=== PATIENT | female | born 1990 | race Caucasian/White ===

== ENCOUNTER → 2020-04-09 13:14 | Outpatient (BNVA) | payer OTHER, SELFPAY | PROVIDERS: Visit Provider Nurse Practitioner | DX: N39.0 Urinary tract infection, site not specified (principal); R39.9 Unspecified symptoms and signs involving the genitourinary system | CPT/HCPCS: 81000; 87086 ==

== ENCOUNTER → 2020-09-22 09:49 | Outpatient (BNVA) | payer OTHER, SELFPAY | PROVIDERS: Visit Provider Emergency Medicine | DX: Z20.828 Contact with and (suspected) exposure to other viral communicable diseases (principal) | CPT/HCPCS: 87635 ==

== ENCOUNTER → 2021-04-04 16:00 | Outpatient (BNVA) | payer OTHER, SELFPAY | PROVIDERS: Visit Provider Nurse Practitioner Women's Health | DX: Z01.419 Encounter for gynecological examination (general) (routine) without abnormal findings (principal); N94.3 Premenstrual tension syndrome; Z30.9 Encounter for contraceptive management, unspecified | CPT/HCPCS: 88175 ==

== ENCOUNTER → 2021-04-14 12:17 | Outpatient (BNVA) | payer OTHER, SELFPAY | PROVIDERS: PCP Nurse Practitioner Family; Visit Provider Nurse Practitioner Family | DX: F32.9 Major depressive disorder, single episode, unspecified (principal); R10.9 Unspecified abdominal pain; R19.7 Diarrhea, unspecified; Z80.0 Family history of malignant neoplasm of digestive organs | CPT/HCPCS: 80053; 84439; 84443; 85025 ==

== ENCOUNTER → 2021-06-27 10:30 | Outpatient (BNVA) | payer OTHER, SELFPAY | PROVIDERS: PCP Nurse Practitioner Family; Visit Provider Nurse Practitioner | DX: M79.645 Pain in left finger(s) (principal); M79.89 Other specified soft tissue disorders | CPT/HCPCS: 73130 ==

== ENCOUNTER → 2021-07-03 15:12 | Outpatient (BNVA) | payer OTHER, SELFPAY | PROVIDERS: PCP Nurse Practitioner Family; Visit Provider Family Medicine | DX: M13.10 Monoarthritis, not elsewhere classified, unspecified site (principal) | CPT/HCPCS: 84550 ==

== ENCOUNTER → 2022-03-08 13:48 | Outpatient (BNVA) | payer OTHER, SELFPAY | PROVIDERS: PCP Nurse Practitioner Family; Visit Provider Nurse Practitioner Women's Health | DX: O99.340 Other mental disorders complicating pregnancy, unspecified trimester (principal); F41.9 Anxiety disorder, unspecified; Z30.9 Encounter for contraceptive management, unspecified; R53.83 Other fatigue; F32.81 Premenstrual dysphoric disorder; Z30.41 Encounter for surveillance of contraceptive pills | CPT/HCPCS: 82306; 84443; 85027 ==

== ENCOUNTER → 2022-08-07 11:58 | Outpatient (BNVA) | payer OTHER, SELFPAY | PROVIDERS: PCP Nurse Practitioner Family; Visit Provider Nurse Practitioner Family | DX: L50.9 Urticaria, unspecified (principal) | CPT/HCPCS: 82785; 86003; 86008 ==